=== PATIENT | male | born 1975 | race Caucasian/White ===

== ENCOUNTER 2018-12-06 14:03 | Emergency (ER) | payer OTHER ==
[~2018-12-06] VITALS: Ht 180.3 cm; Wt 81.6 kg
[2018-12-06 14:07] VITALS: BP 118/81
[2018-12-06] MEDS ORDERED: VIIBRYD1 EAC2 PO (14:16)
[2018-12-06] MEDS ORDERED: NEURONTIN400 MG ORAL (14:16)
[2018-12-06] MEDS ORDERED: KLONOPIN1 MG ORAL (14:16)
[2018-12-06] MEDS ORDERED: TRILEPTAL600 MG PO (14:16)
[2018-12-06] MEDS ORDERED: ADDERALL XR 2020 MG ORAL (14:16)
--- NOTE | 2018-12-06 14:17 | NUR ---
ED Nurse Note: Patient walked into ED c/o lower abdominal/pubic area pain/discomfort for the last two days. patient reports it is "bladder pain" and reports "frequent urination." patient reports that a house doctor/nurse came to his placed and they did urine test result blood in urine and advised patient to come to ED. patient denies any back pain related this issue. patient denies robi blood in the urine. patient is alert awake x4 ambulatory, breathing unlabored and even.
--- NOTE | 2018-12-06 14:27 | Emergency Room Report ---
History of Present Illness General Chief Complaint: Male Urogenital Problems Source: Patient (JUAN LUIS ROJO M.D) Present Illness HPI 43-year-old male with a history of remote kidney stones, sent by visiting doctor for having microscopic hematuria. Having mild suprapubic pain for the past week, feels like it radiates to his testicles denies flank or back pain, has had no fevers, no vomiting, no diarrhea, no other complaints. He denies any robi testicular pain, and cannot think of any obvious alleviatir exacerbatinor triggers. (JUAN LUIS ROJO M.D) Allergies: Coded Allergies: AMOXICILLIN (Verified Allergy, Unknown, 12/06/18) PENICILLINS (Verified Allergy, Unknown, 12/06/18) Patient History Past Medical History: see triage record Reviewed Nursing Documentation: PMH: Agreed; PSxH: Agreed (JUAN LUIS ROJO M.D) Nursing Documentation-PMH Hx Cardiac Problems: No - hx of kidney stone History Of Psychiatric Problem: Yes - ADHD, Biploar (JUAN LUIS ROJO M.D) Review of Systems All Other Systems: negative except mentioned in HPI (JUAN LUIS ROJO M.D) Physical Exam Vital Signs Date Time Temp Pulse Resp B/P (MAP) Pulse Ox O2 Delivery O2 Flow Rate FiO2 12/06/18 14:07 98.1 92 16 94 Room Air Sp02 EP Interpretation: reviewed, normal General Appearance: no apparent distress, alert, non-toxic Head: normocephalic Eyes: bilateral eye normal inspection, bilateral eye PERRL, bilateral eye EOMI ENT: normal ENT inspection, hearing grossly normal, normal pharynx, no angioedema, normal voice, moist mucus membranes Neck: normal inspection, full range of motion, supple, supple/symm/no masses Respiratory: chest non-tender, lungs clear, normal breath sounds, chest symmetrical, palpation of chest normal Cardiovascular #1: normal peripheral pulses, regular rate, rhythm Cardiovascular #2: 2+ radial (R), 2+ radial (L) Gastrointestinal: normal inspection, non tender, soft, no mass, no guarding, no rebound Rectal: deferred Genitourinary: normal inspection, no CVA tenderness, penis normal, scrotum normal Musculoskeletal: back normal, gait/station normal, normal range of motion, non- tender, no calf tenderness Neurologic: alert, responsive, religious education director III-XII nml as tested, motor strength/tone normal, sensory intact, speech normal Psychiatric: judgement/insight normal, memory normal, mood/affect normal Skin: normal color, no rash, warm/dry, normal turgor Lymphatic: no adenopathy (JUAN LUIS ROJO M.D) Medical Decision Making Diagnostic Impression: Primary Impression: Hematuria ER Course patient with normal genitourinary exam, the suprapubic pain intermittently, with microscopic he on an outpatient urine dip test, sent for further evaluation. although I have low suspicion for torsion given the normal exam and lack of current pain or tenderness, he reported the pain radiated to his testicle occasionally, and therefore I ordered a stat testicular US, abd US, ua , labs. will sign out to oncoming physician for further management. (JUAN LUIS ROJO M.D) ER Course Please refer to the initial note for the history exam and presentation Patient was pending ultrasound of the abdomen and testicular area Urine sample does show evidence of blood no obvious infectious pathology Ultrasound of the testicles showed small hydrocele otherwise good flow bilaterally abdominal ultrasound did not show any acute pathology patient's blood work is at baseline levels on repeat evaluation Patient resting comfortably with significant improvement of his discomfort We had discussion regarding CAT scan versus ultrasound Given the patient's improvement and lack of any pain given the blood work evaluation Patient will have close outpatient follow-up, was also recommended to follow-up for clearance of the blood and urine as we do not have a specific diagnosis or evidence of kidney stones on imaging Labs Test 12/06/18 14:39 White Blood Count 12.7 K/UL (4.8-10.8) Red Blood Count 5.08 M/UL (4.70-6.10) Hemoglobin 16.1 G/DL (14.2-18.0) Hematocrit 46.9 % (42.0-52.0) Mean Corpuscular Volume 92 FL (80-99) Mean Corpuscular Hemoglobin 31.8 PG (27.0-31.0) Mean Corpuscular Hemoglobin Concent 34.4 G/DL (32.0-36.0) Red Cell Distribution Width 11.5 % (11.6-14.8) Platelet Count 517 K/UL (150-450) Mean Platelet Volume 5.5 FL (6.5-10.1) Neutrophils (%) (Auto) 53.7 % (45.0-75.0) Lymphocytes (%) (Auto) 33.4 % (20.0-45.0) Monocytes (%) (Auto) 10.2 % (1.0-10.0) Eosinophils (%) (Auto) 1.5 % (0.0-3.0) Basophils (%) (Auto) 1.1 % (0.0-2.0) Urine Color Yellow Urine Appearance Clear Urine pH 5 (4.5-8.0) Urine Specific [place] 1.025 (1.005-1.035) Urine Protein 2+ (NEGATIVE) Urine Glucose (UA) Negative (NEGATIVE) Urine Ketones 1+ (NEGATIVE) Urine Blood 2+ (NEGATIVE) Urine Nitrite Negative (NEGATIVE) Urine Bilirubin Negative (NEGATIVE) Urine Urobilinogen 4 MG/DL (0.0-1.0) Urine Leukocyte Esterase 1+ (NEGATIVE) Urine RBC 5-10 /HPF (0 - 0) Urine WBC 2-4 /HPF (0 - 0) Urine Squamous Epithelial Cells None /LPF (NONE/OCC) Urine Bacteria Few /HPF (NONE) Sodium Level 139 MMOL/L (136-145) Potassium Level 3.9 MMOL/L (3.5-5.1) Chloride Level 101 MMOL/L (98-107) Carbon Dioxide Level 26 MMOL/L (21-32) Anion Gap 12 mmol/L (5-15) Blood Urea Nitrogen 16 mg/dL (7-18) Creatinine 1.0 MG/DL (0.55-1.30) Estimat Glomerular Filtration Rate > 60 mL/min (>60) Glucose Level 107 MG/DL (74-106) Calcium Level 9.7 MG/DL (8.5-10.1) Total Bilirubin 0.4 MG/DL (0.2-1.0) Aspartate Amino Transf (AST/SGOT) 37 U/L (15-37) Alanine Aminotransferase (ALT/SGPT) 75 U/L (12-78) Alkaline Phosphatase 190 U/L (46-116) Total Protein 8.8 G/DL (6.4-8.2) Albumin 4.1 G/DL (3.4-5.0) Globulin 4.7 g/dL Albumin/Globulin Ratio 0.9 (1.0-2.7) Lipase 124 U/L (73-393) (Renato Mancilla DO) CT/MRI/US Diagnostic Results CT/MRI/US Diagnostic Results : Imaging Test Ordered: scrotal and abd US (JUAN LUIS ROJO CT/MRI/US Diagnostic Results : Impression abdominal ultrasound:Impression: Mild hepatomegaly with fatty infiltration. testicular ultrasound: small hydrocele (Renato Mancilla DO) Last Vital Signs Date Time Temp Pulse Resp B/P (MAP) Pulse Ox O2 Delivery O2 Flow Rate FiO2 12/06/18 14:07 98.1 92 16 94 Room Air (JUAN LUIS ROJO M.D) Status: improved (Renato Mancilla DO) Disposition: HOME, SELF-CARE Condition: Improved Scripts [Strainer] No Conflict Check Prov: Renato Mancilla DO 12/06/18 Tamsulosin HCl (Flomax) 0.4 Mg Cap.er.24h 0.4 MG ORAL DAILY for 7 Days, CAP Prov: Renato Mancilla DO 12/06/18 Additional Instructions: Patient is provided with the discharge instructions notified to follow up with primary doctor in the next 2-3 days otherwise return to the er with any worsening symptoms. Please note that this report is being documented using [employer] [place] technology. This can lead to erroneous entry secondary to incorrect interpretation by the dictating instrument. JUAN LUIS ROJO M.D December 06, 2018 14:27 Renato Mancilla DO December 06, 2018 16:46
--- NOTE | 2018-12-06 14:42 | NUR ---
ED Nurse Note: blood/urine sent to lab
--- NOTE | 2018-12-06 14:43 | NUR ---
ED Nurse Note: ultrasound being done at bedside
[2018-12-06 15:00] LABS: APPEARANCE,URINE CLEAR; BILIRUBIN, URINE NEGATIVE (NEGATIVE); GLUCOSE, URINE (UA) NEGATIVE (NEGATIVE); KETONES,URINE 1+ (NEGATIVE); LEUKOCYTE ESTERASE ,URINE 1+ (NEGATIVE); NITRITE,URINE NEGATIVE (NEGATIVE); PH,URINE 5 (4.5-8.0); PROTEIN,URINE 2+ (NEGATIVE); UROBILINOGEN,URINE 4 MG/DL (0.0-1.0)
[2018-12-06 15:18] LABS: ANION GAP 12 mmol/L (5-15); BLOOD UREA NITROGEN 16 mg/dL (7-18); CALCIUM 9.7 MG/DL (8.5-10.1); CARBON DIOXIDE 26 MMOL/L (21-32); CHLORIDE 101 MMOL/L (98-107); POTASSIUM 3.9 MMOL/L (3.5-5.1); SODIUM 139 MMOL/L (136-145)
[2018-12-06 15:22] LABS: COLOR,URINE YELLOW
[2018-12-06 15:23] LABS: ALANINE AMINOTRANSFERASE 75 U/L (12-78); ALBUMIN 4.1 G/DL (3.4-5.0); ALBUMIN/GLOBULIN RATIO 0.9 (1.0-2.7); ALKALINE PHOSPHATASE 190 U/L (46-116); ASPARTATE AMINO TRANSFERASE 37 U/L (15-37); BILIRUBIN,TOTAL 0.4 MG/DL (0.2-1.0)
[2018-12-06 15:27] LABS: BASOPHILS % (AUTO) 1.1 % (0.0-2.0); EOSINOPHILS % (AUTO) 1.5 % (0.0-3.0); HEMATOCRIT 46.9 % (42.0-52.0); HEMOGLOBIN 16.1 G/DL (14.2-18.0); LYMPHOCYTES % (AUTO) 33.4 % (20.0-45.0); MEAN CORPUSCULAR VOLUME 92 FL (80-99); MONOCYTES % (AUTO) 10.2 % (1.0-10.0); NEUTROPHILS % (AUTO) 53.7 % (45.0-75.0); PLATELET COUNT 517 K/UL (150-450); RED BLOOD COUNT 5.08 M/UL (4.70-6.10); RED CELL DISTRIBUTION WIDTH 11.5 % (11.6-14.8); WHITE BLOOD COUNT 12.7 K/UL (4.8-10.8)
[2018-12-06] MEDS ORDERED: FLOMAX0.4 MG ORAL (16:38)
[2018-12-06] MEDS ORDERED: [UNRECOGNIZED DRUG - SUPPLY] (16:41)
--- NOTE | 2018-12-06 16:42 | Diagnostic Imaging Report ---
Indication:Abdominal pain Technique: Grayscale and duplex Doppler imaging of the abdomen performed. Comparison: None Findings: The liver is echogenic and measures 17 cm.. The gallbladder is unremarkable. The demonstrated part of the pancreas, aorta and IVC show no abnormalities. Both kidneys appear unremarkable. The spleen is normal in size. There is no biliary ductal dilatation identified. Doppler evaluation of the main portal vein shows patency. There is no ascites. No hydronephrosis seen. CBD is 3.6 mm Impression: Mild hepatomegaly with fatty infiltration.
[2018-12-06 16:51] VITALS: BP 118/81
--- NOTE | 2018-12-06 16:56 | NUR ---
ER DISCHARGE NOTE: Patient is cleared to be discharged per GRABIEL JEAN, pt is aox4, on room air, with stable vital signs. pt was given dc and prescription instructions, pt was able to verbalize understanding, pt id band and iv site removed without complications. pt is able to ambulate with steady gait. pt took all belongings.
--- NOTE | 2018-12-06 16:59 | Diagnostic Imaging Report ---
Indication:Scrotal pain Technique: Real time grayscale and duplex Doppler imaging of the scrotum performed. Comparison: None Findings: The size, contour, and echogenicitiy of the testis appear normal bilaterally. There is no testicular mass or evidence of torsion. There is good doppler evidence of blood flow within both testes. Epididimi are unremarkable. There is a small hydrocele on the left. Right testis 4 x 1.8 x 3.1 cm. Left testis 4 x 2.2 x 3.0 cm. Impression: No evidence of testicular mass or torsion. Small left hydrocele
== END 2018-12-06 16:56 | disposition home or self-care (01) ==
LOC: EMR 14:45
DX: R31.29 Other microscopic hematuria (principal); Z88.0 Allergy status to penicillin; F31.9 Bipolar disorder, unspecified; F90.9 Attention-deficit hyperactivity disorder, unspecified type; R16.0 Hepatomegaly, not elsewhere classified; K76.0 Fatty (change of) liver, not elsewhere classified
CPT/HCPCS: 36415; 76700; 76870; 80053; 81003; 83690; 85025; 99284